=== PATIENT | female | born 1955 | race Caucasian/White ===

== ENCOUNTER → 2024-07-01 | Outpatient (CLI) | payer MEDICARE, BC, SELFPAY ==
--- NOTE | 2024-07-01 13:52 | XR_ITS ---
Examination: PA lateral chest 2 views TECHNIQUE: Upright PA lateral chest 2 views Exam date and time: July 01, 2024 1410 hours Comparison May 28, 2024 INDICATIONS: Coughing congestion this week. FINDINGS: Scarring versus mild pneumonia at the right base and right middle lobe Normal heart size Prominent osteopenia IMPRESSION: No change in scarring versus mild pneumonia right middle lobe and right base
[2024-07-01 14:51] LABS: Basophils % (Auto) 1 % (0-2.5); Eosinophils % (Auto) 1 % (0-10); Hematocrit 46.8 % (36.0-46.0); Immature Granulocytes % (Auto) 1 % (0-0); Immature Granulocytes Auto 0.04 Thou/mm3 (0.00-0.00); Lymphocytes # (Auto) 1.9 Thou/mm3 (1.0-4.8); Lymphocytes % (Auto) 28 % (10-50); Mean Corpuscular HGB Conc 34.2 g/dl (31.0-37.0); Mean Corpuscular Hemoglobin 31.6 pg (25.0-35.0); Mean Corpuscular Volume 93 fL (80-100); Monocytes # (Auto) 0.1 Thou/mm3 (0.0-0.8); Monocytes % (Auto) 2 % (0-12); Neutrophils # (Auto) 4.5 Thou/mm3 (1.8-7.7); Neutrophils % (Auto) 68 % (37-80); Nucleated Red Blood Cell % 0 /100 WBC (0); Platelet Count 212 Thou/mm3 (140-440); RDW Standard Deviation 43.2 fL (36.4-46.3); Red Blood Count 5.06 Miln/mm3 (4.00-5.20); White Blood Count 6.6 Thou/mm3 (3.6-11.0)
[2024-07-01 15:19] LABS: Alanine Aminotransferase 66 U/L (10-49); Albumin, Serum 4.6 gm/dL (3.4-4.8); Alkaline Phosphatase 123 U/L (46-116); Anion Gap 13 (7-16); Aspartate Amino Transferase 53 U/L (0-34); BUN/Creatinine Ratio 21 Ratio (12-20); Bilirubin,Total 0.9 mg/dL (0.3-1.2); Blood Urea Nitrogen 19 mg/dL (9-23); Calcium 9.5 mg/dL (8.3-10.6); Calcium (Corrected) 9.5 mg/dL (8.5-10.1); Carbon Dioxide 21.5 mMol/L (20.0-31.0); Chloride 105 mMol/L (98-107); Creatinine (Component) 0.9 mg/dL (0.6-1.3); Globulin 2.3 gm/dL (2.3-3.5); Glucose 160 mg/dL (74-106); Osmolality,Calculated 282 (275-295); Potassium 3.8 mMol/L (3.4-5.1); Sodium 139 mMol/L (136-145); Total Protein 6.9 gm/dL (5.7-8.2); eGFR > 60 See Note
[2024-07-02 14:25] LABS: Cocci Serology, IgM Negative (Negative)
[2024-07-03 12:57] LABS: Cocci Serology, IgG Negative (Negative)
== END | disposition home or self-care (01) ==
LOC: COPL 13:45
PROVIDERS: PCP Family Medicine; Referring Provider Physician Assistant; Visit Provider Physician Assistant
DX: J18.9 Pneumonia, unspecified organism (principal)
CPT/HCPCS: 36415; 71046; 80053; 85025; 86331; 86635

== ENCOUNTER → 2024-08-22 | Outpatient (CLI) | payer MEDICARE, BC, SELFPAY ==
--- NOTE | 2024-08-22 15:36 | XR_ITS ---
Examination: Duplex scan of the lower extremity, unilateral right complete Date and time of exam: August 22, 2024 1553 hours INDICATIONS: Right leg swelling redness and pain beginning one month ago Technique: Duplex scan of the extremity veins using B-mode/grayscale imaging and Doppler spectral analysis and color flow Attention is directed to internal echogenicity, compression and augmentation involving these veins, color flow assessment, spectral analysis Findings: Major deep venous structures in the extremity demonstrate normal course and caliber. There is no evidence of deep vein thrombosis. Normal color flow and spectral analysis Impression: Negative for DVT..
== END | disposition home or self-care (01) ==
PROVIDERS: PCP Registered Nurse; Referring Provider Registered Nurse; Visit Provider Registered Nurse
DX: R22.41 Localized swelling, mass and lump, right lower limb (principal)
CPT/HCPCS: 93971

== ENCOUNTER → 2025-02-27 | Outpatient (CLI) | payer MEDICARE, BC, SELFPAY ==
--- NOTE | 2025-02-27 | XR_ITS ---
Examination: PA lateral chest 2 views TECHNIQUE: Upright AP lateral chest 2 views Date and time: February 27, 2025 0747 hours Comparison July 01, 2024 INDICATIONS: Shortness of breath beginning 4 days ago. FINDINGS: Mild hyperexpansion. Normal heart size. Scarring versus pneumonia at the right lung base Moderate osteopenia IMPRESSION: Scarring versus pneumonia at the right lung base, clinical correlation advised
[2025-02-27 09:12] LABS: Collection Type, Urine Clean Catch
[2025-02-27 09:39] LABS: Basophils # (Auto) 0.1 Thou/mm3 (0.0-0.2); Basophils % (Auto) 1 % (0-2.5); Eosinophils # (Auto) 0.4 Thou/mm3 (0.0-0.5); Eosinophils % (Auto) 7 % (0-10); Hematocrit 50.9 % (36.0-46.0); Hemoglobin 17.4 g/dL (12.0-16.0); Immature Granulocytes Auto 0.02 Thou/mm3 (0.00-0.00); Lymphocytes # (Auto) 2.9 Thou/mm3 (1.0-4.8); Lymphocytes % (Auto) 51 % (10-50); Mean Corpuscular HGB Conc 34.2 g/dl (31.0-37.0); Mean Corpuscular Hemoglobin 32.1 pg (25.0-35.0); Mean Corpuscular Volume 94 fL (80-100); Monocytes # (Auto) 0.5 Thou/mm3 (0.0-0.8); Monocytes % (Auto) 8 % (0-12); Neutrophils # (Auto) 1.9 Thou/mm3 (1.8-7.7); Neutrophils % (Auto) 33 % (37-80); Nucleated Red Blood Cell # 0.00 Thou/mm3 (0.00-0.00); Nucleated Red Blood Cell % 0 /100 WBC (0); Platelet Count 170 Thou/mm3 (140-440); RDW Standard Deviation 42.5 fL (36.4-46.3); Red Blood Count 5.42 Miln/mm3 (4.00-5.20); White Blood Count 5.7 Thou/mm3 (3.6-11.0)
[2025-02-27 09:44] LABS: Glucose Estimated Average 103 mg/dL (80-131); Hemoglobin A1C 5.2 % Hgb (4.8-6.0)
[2025-02-27 09:50] LABS: Vitamin D 25 Hydroxy Total 55.3 ng/mL (7.3-40.2)
[2025-02-27 09:51] LABS: Alanine Aminotransferase 57 U/L (10-49); Albumin, Serum 4.4 gm/dL (3.4-4.8); Albumin/Globulin Ratio 1.7 (1.2-2.2); Alkaline Phosphatase 111 U/L (46-116); Anion Gap 7 (7-16); Aspartate Amino Transferase 57 U/L (0-34); BUN/Creatinine Ratio 10 Ratio (12-20); Bilirubin,Total 1.1 mg/dL (0.3-1.2); Blood Urea Nitrogen 9 mg/dL (9-23); Calcium 9.8 mg/dL (8.3-10.6); Calcium (Corrected) 9.8 mg/dL (8.5-10.1); Carbon Dioxide 27.3 mMol/L (20.0-31.0); Cardiac Risk Estimate 3.8 RATIO (3.7-5.6); Chloride 108 mMol/L (98-107); Cholesterol 207 mg/dL (132-200); Creatinine (Component) 0.9 mg/dL (0.6-1.3); Globulin 2.6 gm/dL (2.3-3.5); Glucose 104 mg/dL (74-106); HDL Cholesterol 55 mg/dL (40-60); LDL Cholesterol,Calculated 126 mg/dL (0-130); Osmolality,Calculated 281 (275-295); Potassium 5.1 mMol/L (3.4-5.1); Sodium 142 mMol/L (136-145); Thyroid Stimulating Hormone 2.62 uIU/mL (0.55-4.78); Total Protein 7.0 gm/dL (5.7-8.2); Triglycerides 130 mg/dL (30-150); eGFR > 60 See Note
[2025-02-27 09:58] LABS: Bacteria,Urine Rare; Bilirubin,Urine Negative (Negative); Blood,Urine Negative (Negative); Clarity,Urine Clear (Clear/Hazy); Color,Urine Lt-Yellow (Lt Yel-Yel); Culture Indicated,Urine Not Indicated; Glucose, Urine Negative (Negative); Ketones,Urine Negative (Negative); Leukocyte Esterase,Urine Positive (Negative); Nitrite,Urine Negative (Negative); PH,Urine 6.0 (5.0-7.0); Protein,Urine Negative (Neg - Trace); RBC,Urine 1 /hpf (0-3); Specific Gravity,Urine 1.014 (1.001-1.035); Squamous Epithelial Cell,Urine 4 /hpf (0-5); Urobilinogen,Urine Negative mg/dL (0.0-1.0); WBC,Urine 2 /hpf (0-5)
== END | disposition home or self-care (01) ==
LOC: CDIM 07:02
PROVIDERS: PCP Family Medicine; Referring Provider Registered Nurse; Visit Provider Registered Nurse
DX: R91.8 Other nonspecific abnormal finding of lung field (principal); E78.2 Mixed hyperlipidemia; I10 Essential (primary) hypertension; Z00.00 Encounter for general adult medical examination without abnormal findings
CPT/HCPCS: 36415; 71046; 80053; 80061; 81001; 82306; 83036; 84443; 85025

== ENCOUNTER 2025-04-29 06:27 | Emergency (ER) | payer MEDICARE, BC, SELFPAY ==
[2025-04-29 06:29] VITALS: BMI 28.8
--- NOTE | 2025-04-29 06:47 | XR_ITS ---
Examination: Pelvic ultrasound, transabdominal, complete Technique: Transabdominal ultrasound of the pelvis performed using grayscale imaging Date and time of exam: April 29, 2025, 0719 hrs. Indications: History uterine prolapse, pelvic pain several days Findings: Uterus 6.3 cm with calcifications, no discrete uterine mass Endometrial stripe 0.2 cm Ovaries obscured by bowel gas Impression: Limited study No discrete uterine mass CT pelvis without contrast follow-up would best assess for pelvic floor prolapse, as clinically warranted
[2025-04-29 06:50] VITALS: BP 144/96; PULSE 76; RESP 16; TEMP 36.4; O2SAT 97
--- NOTE | 2025-04-29 06:50 | PD.EDRME ---
Rapid Medical Screening Exam RME Arrival date/time: 04/29/25 06:27 70-year-old female with no known medical history presents to the emergency room with a chief complaint of part of her uterus hanging out of her vagina x 2 days I have greeted and performed a focused initial assessment of this patient. A comprehensive ED assessment and evaluation of the patient, analysis of all test results, and completion of the medical decision making process will be conducted by additional ED providers. Chief Complaint: Urogenital-Female Time Seen by Provider: 04/29/25 06:42 Vital signs reviewed by provider: Yes
[2025-04-29 07:23] LABS: Basophils # (Auto) 0.1 Thou/mm3 (0.0-0.2); Basophils % (Auto) 1 % (0-2.5); Eosinophils # (Auto) 0.6 Thou/mm3 (0.0-0.5); Eosinophils % (Auto) 10 % (0-10); Hematocrit 47.1 % (36.0-46.0); Hemoglobin 15.9 g/dL (12.0-16.0); Immature Granulocytes Auto 0.01 Thou/mm3 (0.00-0.00); Lymphocytes # (Auto) 2.5 Thou/mm3 (1.0-4.8); Lymphocytes % (Auto) 46 % (10-50); Mean Corpuscular HGB Conc 33.8 g/dl (31.0-37.0); Mean Corpuscular Hemoglobin 31.2 pg (25.0-35.0); Mean Corpuscular Volume 93 fL (80-100); Monocytes # (Auto) 0.4 Thou/mm3 (0.0-0.8); Monocytes % (Auto) 7 % (0-12); Neutrophils # (Auto) 2.0 Thou/mm3 (1.8-7.7); Neutrophils % (Auto) 36 % (37-80); Nucleated Red Blood Cell # 0.00 Thou/mm3 (0.00-0.00); Nucleated Red Blood Cell % 0 /100 WBC (0); Platelet Count 153 Thou/mm3 (140-440); RDW Standard Deviation 41.8 fL (36.4-46.3); Red Blood Count 5.09 Miln/mm3 (4.00-5.20); White Blood Count 5.6 Thou/mm3 (3.6-11.0)
[2025-04-29 07:39] LABS: Collection Type, Urine Clean Catch
[2025-04-29 07:42] LABS: Alanine Aminotransferase 48 U/L (10-49); Albumin, Serum 4.4 gm/dL (3.4-4.8); Albumin/Globulin Ratio 2.0 (1.2-2.2); Alkaline Phosphatase 121 U/L (46-116); Anion Gap 8 (7-16); Aspartate Amino Transferase 46 U/L (0-34); BUN/Creatinine Ratio 14 Ratio (12-20); Bilirubin,Total 0.8 mg/dL (0.3-1.2); Blood Urea Nitrogen 11 mg/dL (9-23); Calcium 9.8 mg/dL (8.3-10.6); Calcium (Corrected) 9.8 mg/dL (8.5-10.1); Carbon Dioxide 22.9 mMol/L (20.0-31.0); Chloride 110 mMol/L (98-107); Creatinine (Component) 0.8 mg/dL (0.6-1.3); Estimated Creatinine Clearance 67.3 mL/min (>60); Globulin 2.2 gm/dL (2.3-3.5); Glucose 104 mg/dL (74-106); Osmolality,Calculated 280 (275-295); Potassium 4.3 mMol/L (3.4-5.1); Sodium 141 mMol/L (136-145); Total Protein 6.6 gm/dL (5.7-8.2); eGFR > 60 See Note
[2025-04-29 07:55] LABS: Bilirubin,Urine Negative (Negative); Blood,Urine 2+ (Negative); Clarity,Urine Clear (Clear/Hazy); Color,Urine Lt-Yellow (Lt Yel-Yel); Culture Indicated,Urine Not Indicated; Glucose, Urine Negative (Negative); Ketones,Urine Negative (Negative); Leukocyte Esterase,Urine Positive (Negative); Nitrite,Urine Negative (Negative); PH,Urine 6.0 (5.0-7.0); Protein,Urine Negative (Neg - Trace); RBC,Urine < 1 /hpf (0-3); Specific Gravity,Urine 1.011 (1.001-1.035); Squamous Epithelial Cell,Urine 1 /hpf (0-5); Urobilinogen,Urine Negative mg/dL (0.0-1.0); WBC,Urine 4 /hpf (0-5)
--- NOTE | 2025-04-29 08:32 | PC.NURSE ---
IN TO ASSESS PT. PT WITH C/O UTERINE PROLAPSE, PELVIC PRESSURE, AND BLEEDING FROM HEMORRHOIDS. PT WITHOUT FURTHER COMPLAINTS AT THIS TIME. ORDERS RECEIVED AND INITIATED. CALL LIGHT PLACED WITHIN REACH. PLAN OF CARE ONGOING.
--- NOTE | 2025-04-29 09:15 | PD.EDFMALE ---
ED Female Urogenital RME/HPI General Chief complaint: Urogenital-Female Stated complaint: POSSIBLE UTERUS PROLAPSE Time Seen by Provider: 04/29/25 06:42 Arrival date/time: 04/29/25 06:27 RME / HPI RME / HPI Narrative: 04/29/25 06:27 70-year-old female with no known medical history presents to the emergency room with a chief complaint of part of her uterus hanging out of her vagina x 2 days I have greeted and performed a focused initial assessment of this patient. A comprehensive ED assessment and evaluation of the patient, analysis of all test results, and completion of the medical decision making process will be conducted by additional ED providers. DR. CAAL MAIN ED EVALUATION 70 year old female with history of COPD (on trelegy) presents to the ED for evaluation of my uterus is prolapsed she noticed 2 days ago. States last night her reportedly visualized the prolapsed. States she did not feel anything on the outside and upon examining herself, she felt a hard ball inside of her vagina. Accompanied by nausea yesterday, mild pelvic cramping yesterday that resolved, and a dryness tingling sensation in her vagina. Denies any history of similar presentation. Today she denies any fevers, chills, nausea, vomiting, abdominal pain, diarrhea, constipation, or urinary symptoms. Patient additionally complains of hemorrhoids causing discomfort and bleeding that is present with wiping. Related Data Home Medications ?Medication ?Instructions ?Recorded ?Confirmed zolpidem 12.5 mg tablet,extended 12.5 mg PO QPM PRN Sleep 06/15/20 10/05/23 release,multiphase (Ambien CR) fluticasone fur. 100 mcg-umeclid 1 ea inhalation QDAY PRN Shortness 03/31/23 10/05/23 62.5 mcg-vilant 25 mcg Of Breath inhalat.powder (Trelegy Ellipta) Previous Rx's ?Medication ?Instructions ?Recorded tramadol 50 mg tablet 50 mg PO Q8H PRN pain #30 tabs 10/05/23 Allergies Allergy/AdvReac Type Severity Reaction Status Date / Time No Known Allergies Allergy Verified 10/05/23 14:46 Review of Systems Review of Systems Systems Reviewed: All systems reviewed, normal except as documented Past Medical History Past Medical History CARDIAC: Positive Hypertension RESPIRATORY: Positive Chronic Obstructive Pulmonary Disease (COPD) (due to alpha 1 antitrypsin disease) GASTROINTESTINAL: Positive Gastrointestinal Disorders REPRODUCTIVE: Positive Previous Pregnancies MUSCULOSKELETAL: Positive Arthritis PSYCHO/SOCIAL: Positive Anxiety OTHER HISTORY: Positive Autoimmune Disease and Anesthesia Reactions (elevated BP) Family History FAMILY HISTORY: Negative Family Neurologic Problems Surgical History OTHER SURGICAL HX: BREAST REDUCTION Social History SMOKING STATUS: Never smoker SUBSTANCE USE: marijuana (Daily smoker) ED Exam Narrative Physical exam: Constitutional: Awake, alert, nontoxic, no acute distress HEENT: NC, AT, EOMI Neck: Supple CV: RRR, no m/r/g Lungs: CTAB, no w/r/r, no respiratory distress. Abd: Soft, NT, NT, no HSM noted to palpation : There is a slight uterine prolapse on visual exam which appears to not go past vaginal vault. On bimanual exam, no palpable abnormalities noted and prolapse reduced. Rectal: External exam performed showing hemorrhoids, one appears somewhat irritated with small amount of blood present on the hemorrhoid. Extremities: No deformities, no edema noted Skin: Warm, dry, intact Course Quality Measures none Orders Category Date Time Status US pelvic complete Stat Exams 04/29/25 06:47 Completed CBC Stat Lab 04/29/25 07:08 Completed CMP [Comprehensive Metabolic Panel] Stat Lab 04/29/25 07:08 Completed UA, C/S IF [Urinalysis, C/S if Indicated] Stat Lab 04/29/25 07:34 Completed Vital Signs Vital signs: Vital Signs Temperature 97.6 F 04/29/25 06:50 Pulse Rate 76 04/29/25 06:50 Respiratory Rate 16 04/29/25 06:50 Blood Pressure 144/96 H 04/29/25 06:50 Pulse Oximetry (%) 97 04/29/25 06:50 Oxygen Delivery Method Room Air 04/29/25 06:50 Pulse ox is 97% on room air which is adequate. Urogenital - Female MDM Narrative MDM Narrative:: Pam Snider am scribing for and in the presence of Dr. Caal. Patient data External records reviewed:: [facility] previous records Clinical information provided by:: patient Social determinants that could affect healthcare access:: none Patient has the following chronic illnesses:: COPD, hx of hemorrhoids How is presenting disease/condition affected by chronic disease/condition?: uneffected by Evaluation data The following diagnostics were reviewed and interpreted by me:: lab results and radiology exam(s) Lab and/or radiology exams considered but not ordered:: None Interpretation Summary: Ordering Physician: Parrish Campos Date of Service: 04/29/25 Procedure(s): US pelvic complete Accession Number(s): [id number] cc: Parrish Campos; Gerald Castañeda MD~ Examination: Pelvic ultrasound, transabdominal, complete Technique: Transabdominal ultrasound of the pelvis performed using grayscale imaging Date and time of exam: April 29, 2025, 0719 hrs. Indications: History uterine prolapse, pelvic pain several days Findings: Uterus 6.3 cm with calcifications, no discrete uterine mass Endometrial stripe 0.2 cm Ovaries obscured by bowel gas Impression: Limited study No discrete uterine mass CT pelvis without contrast follow-up would best assess for pelvic floor prolapse, as clinically warranted Dictated By: Gerald Castañeda MD Signed By: <Electronically signed by Gerald Castañeda MD in [place]> 04/29/25 0731 Medications / Prescriptions Medications or Prescriptions considered but not ordered:: None Medication administrations:: None Consultations Consultation(s) initiated? (list below): No Diagnosis Urogenital Female Differential Diagnosis: other (Uterine prolapse, rectal prolapse, bladder prolapse ) Most likely diagnosis given after review of the tests above:: First degree uterine prolapse Hemorrhoid Admission Indicated Admission indicated?: not indicated Admission Request Was there a request for admission?: No Disposition Plan Disposition Plan: Discharge Discharge Attestation Discharge Attestation: The patient and all family members were given an opportunity to ask questions and understood the discharge instructions. Discharge instructions specifically effects, indications for sooner follow up or return to the emergency department, and the expected course of current diagnosis. Patient condition: Stable Discharge Plan Plan Patient Disposition: HOME (Self Care) Patient condition on transfer: Stable Prescriptions/Referrals Prescriptions/Med Rec: No Action tramadol 50 mg tablet 50 mg PO Q8H PRN (Reason: pain) Qty: 30 0RF zolpidem [Ambien CR] 12.5 mg Tablet,Ext Release Multiphase 12.5 mg PO QPM PRN (Reason: Sleep) Trelegy Ellipta 100-62.5-25 mcg blister with device 1 ea INHALATION QDAY PRN (Reason: Shortness Of Breath) Patient Comments: inhale 1 puff by mouth once daily Referrals: Izzy Syed MD [Physician, CLINICAL SUPPORT NURSE] - In 1 week Dain Weiss MD [Primary Care Provider, Family Practice] - In 1 week Problem List Clinical Impression: First degree uterine prolapse, Hemorrhoid Patient/Caregiver Discharge Instructions Education Materials: Treating Hemorrhoids: Self-Care, Pelvic Organ Prolapse, ED Hemorrhoids Additional Instructions: Some general health principles that can benefit are the [employer] principles: Nutrition (plant-based, less processed foods) Exercise (daily as tolerated) Water (fresh water better for hydration rather than sodas, juice, etc) [place] (spend time in the waistline joiner overlock and late evening sun for your vitamin D) [place] (avoid alcohol, drugs, caffeinated beverages) Air (exposure to fresh air in nature daily when possible) Rest (adequate sleep at night, trying to go to bed no later than 9-10pm; good sleep hygiene - avoiding loud noises, phones, television prior to bed) Trust in God (spend time daily in prayer and reading scripture, contemplating a God of love) See additional resources at [email or web address], look under resources and seminars, as well as blogs. Print Language: Nepalese Stand Alone Forms: Elissa Award Info., Patient Portal Info Letter
[2025-04-29 10:29] VITALS: BP 140/70; PULSE 75; RESP 16; TEMP 36.6; O2SAT 98
== END 2025-04-29 10:33 | disposition home or self-care (01) ==
PROVIDERS: Nurse Practitioner Family; Emergency Provider Family Medicine; PCP Family Medicine
DX: N81.2 Incomplete uterovaginal prolapse (principal); K64.9 Unspecified hemorrhoids
CPT/HCPCS: 36415; 76856; 80053; 81001; 85025; 99283

== ENCOUNTER → 2025-05-13 | Outpatient (CLI) | payer MEDICARE, BC, SELFPAY ==
[2025-05-13 12:29] LABS: Anion Gap 11 (7-16); BUN/Creatinine Ratio 7 Ratio (12-20); Blood Urea Nitrogen 7 mg/dL (9-23); Calcium 9.2 mg/dL (8.3-10.6); Carbon Dioxide 21.7 mMol/L (20.0-31.0); Chloride 110 mMol/L (98-107); Creatinine (Component) 1.0 mg/dL (0.6-1.3); Glucose 120 mg/dL (74-106); Osmolality,Calculated 283 (275-295); Potassium 4.5 mMol/L (3.4-5.1); Sodium 143 mMol/L (136-145); eGFR > 60 See Note
== END | disposition home or self-care (01) ==
LOC: COPL 11:26
PROVIDERS: PCP Registered Nurse; Referring Provider Registered Nurse; Visit Provider Registered Nurse
DX: R79.89 Other specified abnormal findings of blood chemistry (principal)
CPT/HCPCS: 36415; 80048